=== PATIENT | female | born 1945 ===

== ENCOUNTER → 2020-10-29 | Outpatient (CLI) | payer MEDICARE, BC, OTHER ==
--- NOTE | 2020-10-30 11:38 | RADIOLOGY REPORT (SQ) ---
EXAM DESCRIPTION: MRI LUMBAR SPINE WITHOUT IMAGES COMPLETED DATE/TIME: 10/29/2020 3:05 pm REASON FOR STUDY: LOW BACK PAIN M54.5 LOW BACK PAIN COMPARISON: None. TECHNIQUE: Sagittal and Axial imaging includes T1, T2, STIR and gradient echo sequences. Coronal T2/ HASTE imaging. LIMITATIONS: Mild motion artifact on some sequences. FINDINGS: VISUALIZED UPPER ABDOMEN: Limiting motion and field of view. No gross pathology detected. SEGMENTATION: No transitional anatomy. The lowest well-developed disc space is labeled L5-S1. ALIGNMENT: Straightening with loss of the normal lumbar lordosis. Subtle scoliosis also suggested. VERTEBRAE: Intact. BONE MARROW: No suspicious bone lesions or fracture identified. No marrow replacement. Relatively c hronic appearing endplate marrow changes at L2-3. DISC SIGNAL: Variable signal and height loss throughout. Partial ankylosis across the L5 disc suspec kyler. POSTERIOR ELEMENTS: Variable facet degenerative changes including hypertrophic overgrowth. No overt pars defect. HARDWARE: None in the spine. CORD AND CONUS: Normal in size and signal intensity. Conus at the appropriate level. SOFT TISSUES: No aortic aneurysm seen. No bulky retroperitoneal adenopathy or mass. No paraspinal mas s or fluid. L1-L2: No significant spinal stenosis or exit foraminal stenosis. L2-L3: Broad disc bulge and mild facet arthropathy with generally mild central narrowing. Up to mode rate left foraminal encroachment. L3-L4: Broad disc bulge. Facet arthropathy with might scratch at facet arthropathy with marked hyper trophic changes particularly related to the right facet articulation. This results in marked right l ateral recess stenosis and pronounced subarticular foraminal stenosis. Up to mild -moderate left for aminal narrowing. L4-L5: Posterior disc osteophytic spurring with facet overgrowth and overall mild -moderate central n arrowing. Up to moderate bilateral foraminal stenosis. L5-S1: No significant spinal stenosis or exit foraminal stenosis. LOWER THORACIC: Incompletely imaged. No stenosis seen. SACRUM: Visualized upper sacrum intact. OTHER: No other significant findings. IMPRESSION: 1. Lumbar spondylosis. Includes subtle scoliosis and straightening with significant right lateral re cess and right foraminal stenosis at the L3-4 level. TECHNICAL DOCUMENTATION: JOB ID: [id number] 2010 [employer]- All Rights Reserved Reading location - IP/workstation name: [email or web address]
== END ==
LOC: RAD 13:54
PROVIDERS: ATTEND Physician Assistant
DX: M54.5 Low back pain (principal)
CPT/HCPCS: 72148